=== PATIENT | male | born 1965 | race Two or more races ===

== ENCOUNTER 2018-07-18 20:19 | Emergency (ER) | payer MEDICAID ==
--- NOTE | 2018-07-18 20:52 | ED Physician Chart ---
ED Chief Complaint/HPI - Patient Information Date Seen:: 07/18/18 Time Seen:: 20:47 Chief Complaint:: RT CHEEK PAIN History of Present Illness:: 52 YR OLD MALE WHO HAD HIS TOOTH PULLED LAST THURS NOW WITH RT CHEEK SWELLING AND DENTAL PAIN AND SWELLING AND CHEEK PAIN Allergies:: Allergies Allergy/AdvReac Type Severity Reaction Status Date / Time No Known Allergies Allergy Verified 07/18/18 20:43 Vitals:: Vital Signs - 8 hr 07/18/18 20:30 Temp 98.7 F HR 80 RR 17 BP 148/83 O2 Sat % 94 ED Review of Systems - Review of Systems General/Constitutional: No fever Skin: Skin lesions Head: No headache ENT: Other (RT DENTAL CAVITY AND GUM SWELLING) Neck: No neck pain Cardio Vascular: No chest pain Pulmonary: No SOB GI: No nausea, No vomiting G/U: No dysuria Musculoskeletal: No bone or joint pain Endocrine: No polyuria Hematopoietic: No bruising Allergic/Immuno: No urticaria Neurological: No syncope ED Past Medical History - Past Medical History Past Medical History: No significant medical hx Family Medical History - Family Member Mother History Unknown: Yes ED Physical Exam - Physical Examination General/Constitutional: Awake, Well-developed, well-nourished, Alert, No distress, GCS 15, Non-toxic appearing, Ambulatory Head: Atraumatic Eyes: Lids, conjuctiva normal, PERRL, EOMI Skin: Nl inspection, No rash, No skin lesions, No ecchymosis, Well hydrated, No lymphadenopathy ENMT: External ears, nose nl, Nasal exam nl, Lips, teeth, gums nl Other ENMT comments:: RT DENTAL SWELLING AND CHEEK PAIN Neck: Nontender, Full ROM w/o pain, No JVD, No nuchal rigidity, No bruit, No mass, No stridor Respiratory: Nl effort/Exclusion, Clear to Auscultation, No Wheeze/Rhonchi/Rales Cardio Vascular: RRR, No murmur, gallop, rubs, NL S1 S2 GI: No tenderness/rebounding/guarding, No organomegaly, No hernia, Normal BS's, Nondistended, No mass/bruits, No McBurney tenderness : No CVA tenderness Extremities: No tenderness or effusion, Full ROM, normal strength in all extremities, No edema, Normal digits & nails Neuro/Psych: Alert/oriented, DTR's symmetric, Normal sensory exam, Normal motor strength, Judgement/insight normal, Mood normal, Normal gait, No focal deficits Misc: Normal back, No paraspinal tenderness ED Assessment - Assessment General Assessment: RT DENTAL ABSCESS ED Septic Shock - . Is Septic Shock (SBP<90, OR Lactate>4 mmol\L) present?: No - <6hrs of presentation: Vital Signs: Vital Signs - 8 hr 07/18/18 20:30 Temp 98.7 F HR 80 RR 17 BP 148/83 O2 Sat % 94 ED Reassessment (Disposition) - Diagnosis Diagnosis:: RT DENTAL ABSCESS - Aftercare/Follow up Instructions Aftercare/Follow-Up Instructions:: Counseled pt regarding lab results/diagnosis & need follow up - Patient Disposition Discharge/Transfer:: Home Condition at Disposition:: Stable
== END 2018-07-18 21:25 | disposition home or self-care (01) ==
LOC: ER 20:19
DX: K04.7 Periapical abscess without sinus (principal)
CPT/HCPCS: 99283; 96372 ×2; J1885; J0696; Z7502